=== PATIENT | female | born 1950 | race Two or more races ===

== ENCOUNTER 2017-06-28 06:37 | Day surgery (SDC) | payer OTHER ==
[~2017-06-28 06:37] MED LIST: ARMOUR THYROID120 M1 PO; ATARAX25 MG PO; HYZAAR 50-12.51 EACH PO; PAROXETINE HCL20 MG PO; VOLTAREN100 GM
[2017-06-28] MEDS ORDERED: BACTRIM DS TAB1 EACH PO (11:46)
[2017-06-28] MEDS ORDERED: RECTICARE30 GM TOP (11:46)
[2017-06-28] MEDS ORDERED: PERCOCET 5-3251 EACH PO (11:46)
== END 2017-06-28 13:10 | disposition home or self-care (01) ==
LOC: CIR.AMB 06:37
DX: N81.6 Rectocele (principal); N81.5 Vaginal enterocele